=== PATIENT | female | born 1995 | race Caucasian/White ===

== ENCOUNTER 2018-02-13 15:42 | Emergency (ER) | payer OTHER ==
[2018-02-13] MEDS ORDERED: Oxymetazoline 0.05% Nasal Spray (30 ml) NS ONE (16:12)
--- NOTE | 2018-02-13 16:53 | C.PDOC ---
History Of Present Illness 22 year old female presents to the ED complaining of flu-like symptoms associated with fever, cough, nasal congestion, frontal headache, sneezing, and sore throat for 3 days. Denies any sick contacts or recent travels. Time Seen by Provider: 02/13/18 15:59 Chief Complaint (Nursing): Flu-like Symptoms History Per: Patient History/Exam Limitations: no limitations Past Medical History Vital Signs: Last Vital Signs Temp 98.2 F 02/13/18 15:52 Pulse 96 H 02/13/18 15:52 Resp 18 02/13/18 15:52 BP 108/75 02/13/18 15:52 Pulse Ox 97 02/13/18 15:52 Family History: States: Unknown Family Hx - Social History Hx Alcohol Use: No Hx Substance Use: No - Immunization History Hx Tetanus Toxoid Vaccination: No Hx Influenza Vaccination: No Hx Pneumococcal Vaccination: No Physical Exam - Physical Exam Appears: Non-toxic, No Acute Distress Skin: Warm, Dry, No Rash Head: Normacephalic Eye(s): bilateral: Normal Inspection Ear(s): Bilateral: Normal Nose: Normal Oral Mucosa: Moist Tongue: Normal Appearing Lips: Normal Appearing Teeth: Normal Dentition Gingiva: Normal Appearing Throat: Other (post nasal drip ) Neck: Supple Chest: Symmetrical Cardiovascular: Rhythm Regular Respiratory: Normal Breath Sounds, No Rales, No Rhonchi, No Wheezing Neurological/Psych: Oriented x3, Normal Speech Gait: Steady ED Course And Treatment O2 Sat by Pulse Oximetry: 97 (RA) Pulse Ox Interpretation: Normal Medical Decision Making Medical Decision Making: Plan - Tessalon Perles 100mg PO - Afrin On re-examination, patient is resting comfortably in no acute distress. Patient reports improvement of symptoms. Patient feels comfortable going home and will be discharged. Patient given follow up instructions. Instructed to return to ER if symptoms worsen or new symptoms arise. Disposition Counseled Patient/Family Regarding: Diagnosis, Need For Followup, Rx Given - Disposition Referrals: [facility] [Outside] [facility] [employer] [facility] [Outside] Disposition: HOME/ ROUTINE Disposition Time: 16:46 Condition: GOOD Additional Instructions: You have viral upper respiratory infection. Take Tylenol or Motrin alternating every 4-6 hours for Fever 100.4F or higher. Rest and drink plenty of fluids. May use cool mist humidifier or vaporizer in room. Try taking over the counter antihistamine (Claritin, Trinidad, Zyrtec), Decongestant or Cough medicine (Mucinex) as needed every 6-8 hours. Follow up with your primary medical doctor or clinic in 1 week for further evaluation. Prescriptions: Fluticasone Propionate [Flonase] 1 spray NS DAILY #1 bottle Phenylephrine/Dm/Acetaminop/GG [Sudafed PE Pressure+Pain+Cold] 1 each PO Q8 #24 tablet Instructions: Viral Upper Respiratory Infection, Adult (DC) Forms: [employer] (Thai) - POA Present On Arrival: None - Clinical Impression Clinical Impression: Influenza-like illness - PA / AMBULANCE DRIVER / Resident Statement MD/DO has reviewed & agrees with the documentation as recorded. - Scribe Statement The provider has reviewed the documentation as recorded by the Scribe Kassy Villa All medical record entries made by the Scribe were at my direction and personally dictated by me. I have reviewed the chart and agree that the record accurately reflects my personal performance of the history, physical exam, medical decision making, and the department course for this patient. I have also personally directed, reviewed, and agree with the discharge instructions and disposition.
[2018-02-13 17:03] VITALS: TEMP 98.2
[2018-02-13 17:05] VITALS: BP 110/76; PULSE 71; RESP 16
[2018-02-13 17:24] VITALS: O2SAT 97
== END 2018-02-13 17:04 | disposition home or self-care (01) ==
LOC: C.ER 15:42
DX: J11.1 Influenza due to unidentified influenza virus with other respiratory manifestations (principal)